=== PATIENT | female | born 1975 | race Hispanic/Latino ===

== ENCOUNTER 2018-10-03 07:26 | Observation (INO) | payer OTHER ==
[2018-10-02 18:07] LABS: INR 0.95; PARTIAL THROMBOPLASTIN TIME 27.2 seconds (23.8-35.5); PROTHROMBIN TIME 13.5 seconds (11.9-14.5)
[2018-10-02 18:10] LABS: BASOPHILS # (AUTO) 0.1 (0.0-0.1); BASOPHILS % 0.5 % (0.0-1.0); EOSINOPHILS # (AUTO) 0.2 (0.0-0.4); EOSINOPHILS % 2.2 % (0.0-6.0); HEMATOCRIT 42.5 % (34.2-44.1); HEMOGLOBIN 14.4 g/dL (12.0-16.0); LYMPHOCYTES # (AUTO) 2.9 (1.0-3.2); LYMPHOCYTES % 26.6 % (18.0-39.1); MEAN CORPUSCULAR HEMOGLOBIN 31.8 pg (28-32); MEAN CORPUSCULAR HGB CONC 33.9 g/dL (31-35); MEAN CORPUSCULAR VOLUME 93.8 fL (81-99); MONOCYTES # (AUTO) 0.6 (0.2-0.8); MONOCYTES % 5.6 % (4.4-11.3); NEUTROPHILS % 64.5 % (38.7-80.0); PLATELET COUNT 249 x10e3/uL (140-360); RED BLOOD COUNT 4.53 x10e6/uL (3.6-5.1); RED CELL DISTRIBUTION WIDTH 12.4 % (11.7-14.4)
[2018-10-02 18:12] LABS: ANION GAP 14.9 mmol/L (8-16); BLOOD UREA NITROGEN 13 mg/dL (7-26); BUN/CREATININE RATIO 17 (6-25); CARBON DIOXIDE 23 mmol/L (22-29); CHLORIDE 103 mmol/L (98-107); CREATININE, SERUM 0.76 mg/dL (0.57-1.11); EST GLOMERULAR FILTRATION RATE > 60 ML/MIN (60-); GLUCOSE 101 mg/dL (74-118); POTASSIUM 3.9 mmol/L (3.5-5.1); SODIUM 137 mmol/L (136-145)
--- NOTE | 2018-10-02 18:20 | Diagnostic Imaging Report ---
EXAMINATION: CHEST 2 VIEWS INDICATION: ^MD ORDER ^[id number] ^[id number] ^PRE ADMIT COMPARISON: None FINDINGS: PA and lateral views TUBES and LINES: None. LUNGS: Lungs are well inflated. Lungs are clear. There is no evidence of pneumonia or pulmonary edema. PLEURA: No pleural effusion or pneumothorax. HEART AND MEDIASTINUM: The cardiomediastinal silhouette is unremarkable. BONES AND SOFT TISSUES: No acute osseous lesion. Soft tissues are unremarkable. UPPER ABDOMEN: No free air under the diaphragm. IMPRESSION: No acute thoracic abnormality. Signed by: Dr. Zaida Zepeda M.D. on 10/02/2018 6:17 PM
[~2018-10-03] VITALS: Ht 167.6 cm; Wt 79.4 kg
[~2018-10-03 07:26] MED LIST: BIRTH CONTROL PO; VIT D PO
--- OUTSIDE RECORDS SUMMARY | 2018-10-03 07:29 | XMS REPORT | Clinical Summary ---
Author Author [facility] Organization [facility] Address Unknown Phone Unavailable Care Team Providers Care Screen Machine Operator Name Role Phone Asked, No Pcp PCP Unavailable Allergies Not on File Medications Not on file Active Problems Not on file Encounters Care Team Description Date Type Specialty Ilana Merchant MD Abnormal mammogram 02/08/2018 Hospital Radiology Encounter Ilana Merchant MD Abnormal mammogram 02/08/2018 Hospital Radiology Encounter Ilana Merchant MD Abnormal mammogram (Primary Dx) 01/29/2018 Transcribe Access Orders Ilana Merchant MD Screening breast examination 01/28/2018 Hospital Radiology Encounter Ilana Merchant MD Screening breast examination (Primary Dx) 01/24/2018 Transcribe Access Orders after 10/02/2017 Social History Date Tobacco Use Types Packs/Day Years Used Never Assessed Sex Assigned at Date Recorded Not on file Industry Job Start Date Occupation Not on file Not on file Not on file Travel End Travel History Travel Start No recent travel history available. Last Filed Vital Signs Not on file Plan of Treatment Health Maintenance Due Date Last Done Comments CERVICAL CANCER SCREENING 1996 INFLUENZA VACCINE 05/22/2018 HEPATITIS B VACCINES Aged Out No longer eligible based on patient's age to complete this topic IPV VACCINES Aged Out No longer eligible based on patient's age to complete this topic MENINGOCOCCAL VACCINE Aged Out No longer eligible based on patient's age to complete this topic Procedures Comments Procedure Name Priority Date/Time Associated Diagnosis US BREAST COMPLETE RIGHT Routine 02/08/2018 Abnormal mammogram 2:42 PM CDT MAMMO BREAST DIAGNOSTIC Routine 02/08/2018 Abnormal mammogram TOMOSYNTHESIS RIGHT 2:20 PM CDT MAMMO BREAST SCREEN Routine 01/28/2018 Screening breast TOMOSYNTHESIS BILATERAL 8:00 AM CDT examination after 10/02/2017 Results * US Breast Complete Right (02/08/2018 2:42 PM CDT) Narrative Performed At EXAMINATION:MAMMO BREAST DIAGNOSTIC TOMOSYNTHESIS RIGHT, US BREAST COMPLETE HM [facility] RIGHT02/08/2018 Computer-assisted detection was utilized in the interpretation of this exam. COMPARISONS:Baseline screening mammogram 01/28/2018 INDICATION:Right breast mass and right axillary lymph node seen on screening mammogram FINDINGS: MAMMOGRAM: The breast parenchyma is heterogeneously dense. This limits the overall sensitivity of mammography, possibly obscuring the detection of small masses. There is a persistent circumscribed isodense mass in the 9 o'clock position right breast mid depth. ULTRASOUND: High resolution gao scale sonography includes imaging of all four quadrants and the retroareolar tissues. This demonstrates the followingcircumscribed isodense masses in the right breast: 0.6 x 0.5 x 0.7 cm mass 9-10 o'clock 8 cm from the nipple. This correlates with mammographic findings. 0.6 x 0.2 x 0.4 cm mass 9 o'clock 7 cm from the nipple Evaluation of the right axilla demonstrates benign lymph nodes without adenopathy. IMPRESSION: 2 probably benign masses in the lateral right breast 9 to 10 o'clock position as described above. Findings and recommendations were discussed in person with the patient at the time of the examination. BI-RADS 3: PROBABLY BENIGN.6 month follow-up right breast ultrasound recommended. [id number] Performing Organization Address City/State/Zipcode Phone Number [facility] [address] [place] [address] * Mammo Breast Diagnostic Tomosynthesis Right (02/08/2018 2:20 PM CDT) Narrative Performed At EXAMINATION:MAMMO BREAST DIAGNOSTIC TOMOSYNTHESIS RIGHT, US BREAST COMPLETE [facility] RIGHT02/08/2018 Computer-assisted detection was utilized in the interpretation of this exam. COMPARISONS:Baseline screening mammogram 01/28/2018 INDICATION:Right breast mass and right axillary lymph node seen on screening mammogram FINDINGS: MAMMOGRAM: The breast parenchyma is heterogeneously dense. This limits the overall sensitivity of mammography, possibly obscuring the detection of small masses. There is a persistent circumscribed isodense mass in the 9 o'clock position right breast mid depth. ULTRASOUND: High resolution gao scale sonography includes imaging of all four quadrants and the retroareolar tissues. This demonstrates the followingcircumscribed isodense masses in the right breast: 0.6 x 0.5 x 0.7 cm mass 9-10 o'clock 8 cm from the nipple. This correlates with mammographic findings. 0.6 x 0.2 x 0.4 cm mass 9 o'clock 7 cm from the nipple Evaluation of the right axilla demonstrates benign lymph nodes without adenopathy. IMPRESSION: 2 probably benign masses in the lateral right breast 9 to 10 o'clock position as described above. Findings and recommendations were discussed in person with the patient at the time of the examination. BI-RADS 3: PROBABLY BENIGN.6 month follow-up right breast ultrasound recommended. [id number] Performing Organization Address [facility] Phone Number [facility] [address] [place] [address] * Mammo Breast Screen Tomosynthesis Bilateral (01/28/2018 8:00 AM CDT) Narrative Performed At PROCEDURE: MAMMO BREAST SCREEN TOMOSYNTHESIS BILATERAL [employer] Computer aided detection was utilized for the interpretation of the digital bilateral screening mammography with tomosynthesis. COMPARISON: None CLINICAL HISTORY: 42-year-old female for baseline screening mammogram.The patient has no current breast complaints. DENSITY: The breast tissue is heterogeneously dense, which may obscure small masses. There is a possible subcentimeter mass in the right superior breast at middle depth only identified on right MLO 3-D views. Additionally, there is a questionable prominent right axillary lymph node only seen on right MLO view. No significant masses, calcifications, or other findings are seen in the left breast. IMPRESSION: 1. Possible right breast mass. 2. Questionable prominent right axillary lymph node. 3. No mammographic evidence of malignancy in the left breast. RECOMMENDATION: Right diagnostic mammogram and bilateral breast ultrasound to include the bilateral axilla. BI-RADS 0: INCOMPLETE - Need Additional Imaging Evaluation This facility is accredited by the [employer] for Mammography. A negative x-ray report should not delay biopsy if a dominant or clinically suspicious mass is present.Not all cancers are identified by x-ray. [id number] Performing Organization Address [facility] Phone Number [facility] [address] [place] [address] after 10/02/2017 Insurance Payer Benefit Subscriber ID Type Phone Address Plan / Group CIGNA CIGNA OPEN xxxxxxxxxxx HMO ACCESS/NET WORK Advance Directives Patient has advance care planning documents on file. For more information, delmer rodriguez contact: Tanner Barajas [address] [place] [address]
--- OUTSIDE RECORDS SUMMARY | 2018-10-03 07:29 | XMS REPORT ---
Author Author [facility] Address Unknown Phone Unavailable Care Team Providers Care Supervisor Pre Wave Name Role Phone NOLAN OCASIO Unavailable Unavailable Problems This patient has no known problems. Allergies, Adverse Reactions, Alerts This patient has no known allergies or adverse reactions. Medications This patient has no known medications. Results Test Description Test Time Test Comments Text Results Atomic Results Result Comments CHEST 2 VIEWS 2018-10-02 18:17:00 [place] [address] Patient Name: LONNY PEÑA MR #: [id number] : 1975 Age/Sex: 43/F Req #: [id number] Adm Physician: Ordered by: NOLAN OCASIO MD Report #: [id number] Location: OR Room/Bed: Procedure: [id number] DX/CHEST 2 VIEWS Exam Date: 10/02/18 Exam Time: 1753 REPORT STATUS: Signed EXAMINATION: CHEST 2 VIEWS INDICATION: MD ORDER [id number] 1753 PRE ADMIT COMPARISON: None FINDINGS: PA and lateral views TUBES and LINES: None. LUNGS: Lungs are well inflated. Lungs are clear. There is no evidence of pneumonia or pulmonary edema. PLEURA: No pleural effusion or pneumothorax. HEART AND MEDIASTINUM: The cardiomediastinal silhouette is unremarkable. BONES AND SOFT TISSUES: No acute osseous lesion. Soft tissues are unremarkable. UPPER ABDOMEN: No free air under the diaphragm. IMPRESSION: No acute thoracic abnormality. Signed by: Dr. Gutierrez Anderson M.D. on 10/02/2018 6:17 PM Dictated By: GUTIERREZ ANDERSON MD 16 Transcribed By: MELISSA on 10/02/181816 COPY TO: NOLAN OCASIO MD
[2018-10-03] MEDS ORDERED: CEFAZOLIN SOD 1 GM/D5W 50ML 50 ML IV ONE (08:33)
[2018-10-03] MEDS ORDERED: THROMBIN FOR SOLN 5,000 UNIT VIAL ONE (09:48)
[2018-10-03] MEDS ORDERED: BACITRACIN 50,000 UNIT VIAL ONE (09:48)
[2018-10-03] MEDS ORDERED: GELATIN SPONGE 12-7MM ONE (09:48)
[2018-10-03] MEDS ORDERED: MAGNESIUM/ALUMINUM/SIMETHICONE 30 ML UDC PO PRN (12:30)
[2018-10-03] MEDS ORDERED: ZOLPIDEM TARTRATE 5 MG TAB PO PRN (12:30)
[2018-10-03] MEDS ORDERED: CARISOPRODOL 350 MG TAB PO PRN (12:30)
[2018-10-03] MEDS ORDERED: ONDANSETRON HCL INJ 2 MG/ML VIAL IV PRN (12:30)
[2018-10-03] MEDS ORDERED: CEPACOL SORE THROAT LOZENGES PO PRN (12:30)
[2018-10-03] MEDS ORDERED: MORPHINE SULFATE 5 MG/ML VIAL IM PRN (12:30)
[2018-10-03] MEDS ORDERED: HYDROMORPHONE 2MG/ML 2 MG/ML ML IV PRN (12:30)
[2018-10-03] MEDS ORDERED: ACETAMINOPHEN 325 MG TAB PO PRN (12:30)
[2018-10-03] MEDS ORDERED: PROMETHAZINE HCL (IM) 25 MG/ML VIAL IM PRN (12:30)
--- OUTSIDE RECORDS SUMMARY | 2018-10-03 12:44 | XMS REPORT | Clinical Summary ---
Author Author [facility] Organization [facility] Address Unknown Phone Unavailable Care Team Providers Care Mobile Development Manager Name Role Phone Asked, No Pcp PCP [...] BENIGN.6 month follow-up right breast ultrasound recommended. [id number] Performing Organization Address City/State/Zipcode Phone Number [facility] [address] [place] [address] * Mammo Breast Diagnostic Tomosynthesis Right (02/08/2018 [...] BENIGN.6 month follow-up right breast ultrasound recommended. [id number] Performing Organization Address [facility] Phone Number [facility] [address] [place] [address] * Mammo Breast Screen Tomosynthesis Bilateral (01/28/2018 8:00 AM CDT) Narrative Performed At PROCEDURE: MAMMO BREAST SCREEN TOMOSYNTHESIS BILATERAL [employer] Computer aided detection was utilized for the [...] Evaluation This facility is accredited by the [employer] for Mammography. A negative x-ray report should not delay biopsy if a dominant or clinically suspicious mass is present.Not all cancers are identified by x-ray. [id number] Performing Organization Address [facility] Phone Number [facility] [address] [place] [address] after 10/02/2017 Insurance Payer Benefit Subscriber ID Type Phone Address Plan / Group CIGNA CIGNA OPEN xxxxxxxxxxx HMO ACCESS/NET WORK Advance Directives Patient has advance care planning documents on file. For more information, delmer rodriguez contact: Tanner Barajas [address] [place] [address]
[2018-10-03] MEDS ORDERED: FENTANYL CITRATE/PF 100MCG/2 ML INJ ONE ×2 (14:34→18:08)
--- NOTE | 2018-10-03 14:49 | Operative Report ---
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 POSTOPERATIVE DIAGNOSIS: C5-C6 spondylosis and chronic disk herniation with radiculopathy, M50.122. PROCEDURES: 1. C5-C6 anterior cervical diskectomy and microsurgical osteophyte resection and allograft fusion, 51355. 2. Preparation of MTF cortical cancellous allograft, 23647. 3. C5-6 anterior cervical plating with Synthes ZP endplate, 19724. ANESTHESIA: General. INDICATIONS: The patient is a 43-year-old woman who presents with neck pain radiating to the right shoulder and upper arm and is found to have a C5-C6 disk osteophyte complex eccentric to the right with compression of the origin of the right C6 nerve root. She was taken to operating room for anterior cervical decompression and fusion. PROCEDURE: After induction of anesthesia, the patient was placed on the operating table in supine position. The right side of the neck was prepped and draped in sterile fashion. The fluoroscopic C-arm was positioned in cross-table lateral orientation. A small transverse incision was created on the right side of the neck superimposed on the C5-C6 disk space as determined by fluoroscopy. The platysma was divided in line with the incision. A subplatysmal dissection was carried out. An avascular plane of dissection was followed medial to the carotid sheath to the anterior border of the cervical spine. The deep cervical fascia was opened. The esophagus was retracted to the left. The attachments of longus coli muscles to the anterolateral aspects of vertebral bodies of C5 and C6 were divided. The anterior longitudinal ligament was resected. [place] posts were inserted into C5 and C6. The [place] distractor was used to distract the disk space. The anterior annulus of the disk was incised with a number 11 blade. The contents of the disk which were degenerated were thoroughly evacuated with angled curets and pituitary rongeurs. The posterior osteophytes were meticulously drilled with a 2 mm cutting bur on a high-speed drill until they were completely removed. The hypertrophic uncinate processes were similarly drilled down along the medial aspects bilaterally and the posterior annulus of the disk, chronically herniated disk material, and the posterior longitudinal ligament were resected layer by layer with a 1 mm Kerrison rongeur until the dura was fully exposed and decompressed. The medial aspects of the uncinate processes were further resected with a 1 mm Kerr[place] rongeur bilaterally to further expose and decompress the origins of the C6 nerve roots bilaterally. Epidural hemostasis was achieved by placing small pieces of Gelfoam over the venous plexus overlying each nerve root and the endplates were prepared for fusion. A piece of MTF cortical cancellous allograft measuring 8 mm in thickness was selected and prepared in saline and loaded onto a corresponding Synthes ZP endplate. The construct was then inserted into C5-6 disk space under distraction and fluoroscopic guidance and tamped in place until the anterior margin of the plate was flush with anterior margin of the vertebral bodies. The plate was then screwed to the endplates of C5 and C6 with 2 pairs of 14 mm screws. All 4 screws were locked. An excellent construct was obtained. The retractor was removed. The edges of the longus coli muscles were bipolar coagulated for hemostasis. A small amount of diffuse bony oozing continued to come from the disk space in order to prevent a neck hematoma formation. The small Hemovac drain was placed over the plate and brought out through a separate stab incision. The wound was then copiously irrigated with Bacitracin solution. The platysma was closed with 3-0 Vicryl sutures. The skin was closed with 4-0 Monocryl sutures in subcuticular fashion. Steri-strips and dressing were applied. The patient was awakened and extubated and taken to postanesthesia care unit in stable condition. No intraoperative complications were encountered. Estimated blood loss was 20 mL. No adverse changes were noted at any point in the operation. NOLAN OCASIO MD Job#: [id number]
[2018-10-03 16:00] VITALS: BP 127/80
[2018-10-03 16:17] VITALS: BP 127/80
[2018-10-03] MEDS: LACTATED RINGER'S 1,000 ML IV SCH ×2 (17:36→20:37)
[2018-10-03] MEDS: CEFAZOLIN SOD 1 GM/D5W 50ML 50 ML IV SCH ×2 (17:36→21:23)
[2018-10-03] MEDS ORDERED: MORPHINE SULFATE INJ 10 MG/ML IM PRN (18:00)
[2018-10-03] MEDS ORDERED: MIDAZOLAM HCL 2 MG/2 ML VIAL ONE (18:08)
[2018-10-03] MEDS ORDERED: ONDANSETRON HCL INJ 2 MG/ML VIAL ONE (18:08)
[2018-10-03] MEDS ORDERED: ROCURONIUM BROMIDE 10 MG/ML 5ML VIAL ONE (18:08)
[2018-10-03] MEDS ORDERED: LIDOCAINE HCL 2% LOCAL INJ 5 ML SDV VIAL INJ ONE (18:08)
[2018-10-03] MEDS ORDERED: DEXAMETHASONE SOD PHOS INJ 4 MG/ML VIAL ONE (18:08)
[2018-10-03] MEDS ORDERED: PROPOFOL IV EMULSION 10 MG/ML 20 ML VIAL ONE (18:08)
[2018-10-03] MEDS ORDERED: SEVOFLURANE INHAL SOLN 250 ML PEN BTL ONE (18:08)
[2018-10-03] MEDS: OXYCODONE/ACETAMINOPHEN 5-325 1 EACH TABLET PO PRN (19:31)
[2018-10-03 20:00] VITALS: BP 130/77
[2018-10-04] MEDS: OXYCODONE/ACETAMINOPHEN 5-325 1 EACH TABLET PO PRN ×2 (01:49→08:38)
[2018-10-04 02:54] VITALS: BP 119/71
[2018-10-04 04:00] VITALS: BP 125/61
[2018-10-04] MEDS: LACTATED RINGER'S 1,000 ML IV SCH (04:57)
[2018-10-04] MEDS: CEFAZOLIN SOD 1 GM/D5W 50ML 50 ML IV SCH (04:58)
--- NOTE | 2018-10-04 06:50 | Diagnostic Imaging Report ---
Cervical Spine, 2 views HISTORY: Status post surgery. COMPARISON: None. FINDINGS: Limited sensitivity for detection of subtle fractures and ligamentous abnormalities. On the lateral view, the cervical spine is visualized from the skull base to T1. The alignment is normal. Status post disc spacer placement at C5-C6. Percutaneous drain with tip in the right prevertebral space. Soft tissue swelling and subcutaneous emphysema in the right neck. No acute displaced fracture involving the visualized cervical spine. Disc Spaces and Uncovertebral Joints: Disc spacer at C5-C6. Otherwise, unremarkable. Facets: The facet joints are unremarkable. IMPRESSION: No acute radiographic abnormality. Signed by: DR. Sai Riley MD on 10/04/2018 6:47 AM
[2018-10-04 08:02] VITALS: BP 113/76
[2018-10-04 08:49] VITALS: BP 113/76
[2018-10-04] MEDS ORDERED: BIRTH CONTROL PO SCH (09:00)
[2018-10-04] MEDS ORDERED: NORCO 7.5-3251 EACH PO (09:15)
== END 2018-10-04 10:24 | disposition home or self-care (01) ==
LOC: OR 07:26 → PACU V 12:18 → MED/SURG 15:28
PROVIDERS: ADMIT Neurological Surgery; ATTEND Neurological Surgery
DX: M50.122 Cervical disc disorder at C5-C6 level with radiculopathy (principal); Z01.810 Encounter for preprocedural cardiovascular examination; Z01.812 Encounter for preprocedural laboratory examination; Z01.811 Encounter for preprocedural respiratory examination
CPT/HCPCS: 20931; 22551; 22845; 36415; 71046; 72040; 77003; 80048; 81025; 85025; 85610; 85730; 86850; 86900; 88304; 93005; C1713 ×2; C9359; G0378 ×2; J0690 ×2; J1100; J2001; J2250; J2405; J2704; J7120; J2270

== ENCOUNTER → 2019-02-11 | Day surgery (SDC) | payer OTHER ==
[~2019-02-11] MED LIST changes: +BACITRACIN 50,000 UNIT VIAL ONE; +BUPIVACAINE HCL 0.5% INJ 30 ML VIAL INJ ONE; +CEFAZOLIN SOD 2 GM/D5W 50ML 50 ML IV ONE; +DEXAMETHASONE SOD PHOS INJ 4 MG/ML VIAL ONE; +EPHEDRINE SULFATE INJ 50 MG/10 ML SYR ONE; +FENTANYL CITRATE/PF 100MCG/2 ML INJ ONE; +KETOROLAC TROMETHAMINE 30 MG/ML VIAL ONE; +LIDOCAINE HCL 2% LOCAL INJ 5 ML SDV VIAL INJ ONE; +MIDAZOLAM HCL 2 MG/2 ML VIAL ONE; +NEOMYCIN/POLYMYX/BACITR OINT 0.9 GM PKT ONE; +NORCO 7.5-3251 EACH PO; +ONDANSETRON HCL INJ 2MG/ML 2ML 2 MG/ML VIAL ONE; +PROPOFOL IV EMULSION 10 MG/ML 20 ML VIAL ONE; +SEVOFLURANE INHAL SOLN 250 ML PEN BTL ONE
--- OUTSIDE RECORDS SUMMARY | 2019-02-11 06:33 | XMS REPORT | Clinical Summary ---
Author Author [facility] Organization [facility] Address Unknown Phone Unavailable Care Team Providers Care Customs House Broker Name Role Phone Asked, No Pcp PCP Unavailable Allergies Not on File Medications Not on file Active Problems Not on file Encounters Care Team Description Date Type Specialty Ilana Merchant MD Abnormal mammogram (Primary Dx) 01/28/2019 Transcribe Access Orders Ilana Merchant MD 01/28/2019 Transcribe Access Orders after 02/10/2018 Social History Date Tobacco Use Types Packs/Day [...] Comments CERVICAL CANCER SCREENING 1996 INFLUENZA VACCINE 05/22/2019 Procedures Comments Procedure Name Priority Date/Time Associated Diagnosis US BREAST RIGHT LIMITED Routine 01/29/2019 Abnormal mammogram 1:40 PM CDT MAMMO BREAST DIAGNOSTIC Routine 01/29/2019 Abnormal mammogram TOMOSYNTHESIS BILATERAL 1:30 PM CDT after 02/10/2018 Results * US Breast Right Limited (01/29/2019 1:40 PM CDT) Narrative Performed At PROCEDURE: MAMMO BREAST DIAGNOSTIC TOMOSYNTHESIS BILATERAL, US BREAST RIGHT HM [facility] LIMITED Computer aided detection with tomosynthesis was utilized for the interpretation. HISTORY:Patient is a 43-year-old female who had a diagnostic mammogram and ultrasound on January 2018 demonstrating 2 oval circumscribed masses in the right breast at 9:00 position. Short-term ultrasound follow-up was advised. COMPARISON: Prior studies from January 29, 2019 Mammogram: The breast parenchyma is heterogeneously dense, decreasing the sensitivity of the study. There is a stable 0.7 cm oval circumscribed mass in the right breast at 9:00 position. Benign scattered calcifications. There is no evidence of new masses, architectural distortions or grouped calcifications. Ultrasound: Target ultrasound for the right breast demonstrate a stable 0 6 x 0 4 x 0.6 cm oval hypoechoic circumscribed mass at 9:00/10:00 8 cm from the nipple. There is also a stable hypoechoic circumscribed oval mass at 9:00 7 cm from the nipple measuring 0.6 x 0.4 x 0.2 cm. IMPRESSION:Masses in the right breast are stable for one year. RECOMMENDATION: Correlation with physical exam and annual bilateral mammography and right breast ultrasound to prove 2 years stability of the masses in the right breast. BI-RADS 3: Probably benign finding. This facility is accredited by The [employer] for Mammography. A negative x-ray report should not delay biopsy if a dominant or clinically suspicious mass is present.Not all cancers are identified by x-ray. [id number] Performing Organization Address City/State/Zipcode Phone Number [facility] [address] [place] [address] * Mammo Breast Diagnostic Tomosynthesis Bilateral (01/29/2019 1:30 PM CDT) Narrative Performed At PROCEDURE: MAMMO BREAST DIAGNOSTIC TOMOSYNTHESIS BILATERAL, US BREAST RIGHT [facility] LIMITED Computer aided detection with tomosynthesis was utilized for the interpretation. HISTORY:Patient is a 43-year-old female who had a diagnostic mammogram and ultrasound on January 2018 demonstrating 2 oval circumscribed masses in the right breast at 9:00 position. Short-term ultrasound follow-up was advised. COMPARISON: Prior studies from January 29, 2019 Mammogram: The breast parenchyma is heterogeneously dense, decreasing the sensitivity of the study. There is a stable 0.7 cm oval circumscribed mass in the right breast at 9:00 position. Benign scattered calcifications. There is no evidence of new masses, architectural distortions or grouped calcifications. Ultrasound: Target ultrasound for the right breast demonstrate a stable 0 6 x 0 4 x 0.6 cm oval hypoechoic circumscribed mass at 9:00/10:00 8 cm from the nipple. There is also a stable hypoechoic circumscribed oval mass at 9:00 7 cm from the nipple measuring 0.6 x 0.4 x 0.2 cm. IMPRESSION:Masses in the right breast are stable for one year. RECOMMENDATION: Correlation with physical exam and annual bilateral mammography and right breast ultrasound to prove 2 years stability of the masses in the right breast. BI-RADS 3: Probably benign finding. This facility is accredited by The [employer] for Mammography. A negative x-ray report should not delay biopsy if a dominant or clinically suspicious mass is present.Not all cancers are identified by x-ray. [id number] Performing Organization Address City/State/Zipcode Phone Number [facility] [address] [place] [address] after 02/10/2018 Insurance Payer Benefit Subscriber ID Type Phone Address Plan / Group CIGNA CIGNA OPEN xxxxxxxxxxx O ACCESS/NET WORK Advance Directives Patient has advance care planning documents on file. For more information, delmer rodriguez contact: Tanner Barajas [address] [place] [address]
--- NOTE | 2019-02-11 07:11 | NUR ---
SPIRITUAL CARE - Pre-Surgery Assessment: Pt in bed. Pt's mother at bedside. Pt reported supportive attention from family and friends. Intervention: I provided pastoral presence, hospitality, and sympathetic listening. I acquainted pt with availability of squad boss while hospitalized. Outcome: Pt expressed appreciation for visit. No need for follow up indicated at this time. DENA Zunigalain Spiritual Care Department O: [phone] Pager: [phone] ([phone] + number calling from)
[2019-02-11 10:00] VITALS: BP 125/73
--- NOTE | 2019-02-11 16:06 | Operative Report ---
DATE OF PROCEDURE: 02/11/2019 SURGEON: Colleen Irwin DPM ACT ENGLISH TUTOR: None. PREOPERATIVE DIAGNOSES: 1. Soft tissue mass, left 2nd. 2. Open most central aspect of the mass, left 2nd. POSTOPERATIVE DIAGNOSES: 1. Soft tissue mass, left 2nd. 2. Open most central aspect of the mass, left 2nd. PATHOLOGY: There were no specimens sent for pathology. ANESTHESIA: General anesthetic with a local block consisting of 7 mL of 0.5, Marcaine plain. COMPLICATIONS: None. CONDITION: Stable. MATERIALS: Allograft for the open wound at the left 2nd digit to promote healing to prevent adhesion and to promote closing of the area. PROCEDURE IN DETAIL: Under mild sedation, the patient was brought to the operative room and placed on the operating table in a supine position. Following IV sedation, anesthesia was obtained with general anesthetic. At this point, the left foot was scrubbed, prepped and draped in usual aseptic manner. The pneumatic ankle tourniquet was inflated to 250 mmHg and the leg was lowered to the table. Attention was then directed to the left 2nd digit where curvilinear incision overlying the mass was made. The incision was deepened via sharp and blunt dissection down to the level of the mass. At this point, it was noted that the mass capsule had began to protrude through the skin at the joint. Utilizing sharp and blunt dissection, the mass was removed. It had clear gelatinous fluid that was removed in toto. It was passed from the operating table and was sent for pathology. At this point, attention was directed to the area of the stalk. The stalk was cauterized. The area was then flushed with copious amount of normal sterile saline solution. Human allograft was then used into the area to cover some of the open deficit at the dorsal aspect of the left 2nd. Allograft from [employer], reference #[id number], lot [id number], expiration August 20, 2020, was applied. It was secured utilizing simple interrupted sutures with 4-0 nylon. All the areas was closed with 4-0 nylon. A Nimesh dressing was applied consisting of Adaptic, 4x4s, Kerlix, and an Lupillo bandage. The tourniquet was deflated. There was noted to be hyperemic response to all digits. The patient tolerated the procedure and anesthesia well without complications, was transferred to recovery room with vital signs stable, vascular status intact. The patient will be discharged home when she meets criteria. She was given instructions to be weightbearing for activities of daily living with the fracture boot, to ice and elevate the foot, to call the office if any questions, concerns, or any problems arise. KRISSY Verdugo/ALDO /[id number]
== END | disposition home or self-care (01) ==
LOC: OR 06:31
PROVIDERS: ATTEND Podiatrist Foot & Ankle Surgery
DX: M67.472 Ganglion, left ankle and foot (principal); S91.105A Unspecified open wound of left lesser toe(s) without damage to nail, initial encounter; X58.XXXA Exposure to other specified factors, initial encounter
CPT/HCPCS: 15275; 28092; 87071; 87075; 87205; 88304; J0690; J1100; J1885; J2001; J2250; J2405; J2704; Q4150